=== PATIENT | female | born 1995 | race Caucasian/White ===

== ENCOUNTER 2021-02-11 14:03 | Emergency (ER) | payer OTHER, SELFPAY ==
[2021-02-11] MEDS ORDERED: Bupivacaine 0.25% HCL 30 ML VIAL ONE (15:03)
[2021-02-11] MEDS ORDERED: Triple Antibiotic Oint 1 GM Packet ONE (15:15)
== END 2021-02-11 15:35 | disposition home or self-care (01) ==
LOC: CSHERS 14:03
DX: S61.111A Laceration without foreign body of right thumb with damage to nail, initial encounter (principal); E05.90 Thyrotoxicosis, unspecified without thyrotoxic crisis or storm; W26.0XXA Contact with knife, initial encounter
CPT/HCPCS: 99283; S0020

== ENCOUNTER 2022-04-07 21:38 | Emergency (ER) | payer OTHER ==
[2022-04-07] MEDS ORDERED: Ondansetron PF 4 MG/2 ML Vial ONE (22:14)
[2022-04-07] MEDS ORDERED: Morphine 4 MG/ML VIAL ONE (22:14)
[2022-04-07 22:34] LABS: #Monocytes 0.5 10x3/uL (0.0-1.1); #Neutrophils 8.8 10x3/uL (1.5-8.4); %Basophils 0.1 % (0.0-2.0); %Eosinophils 0.4 % (0.0-6.0); %Monocytes 4.6 % (0.0-10.0); %Neutrophils 76.7 % (40.0-75.0); Hemoglobin 10.8 g/dL (12.0-15.5); Mean Corpuscular HGB CONC 31.7 g/dL (32.0-36.0); Mean Corpuscular Hemoglobin 22.5 pg (27.0-33.0); Mean Corpuscular Volume 71.2 fl (81.6-98.3); Mean Platelet Volume 9.4 fl (7.4-10.4); Platelet Count 236 10x3/uL (150-450); RBC Distribution Width 15.7 % (11.5-14.5); Red Blood Cell (RBC) Count 4.79 10x6/uL (3.90-5.03); White Blood Cell (WBC) Count 11.4 10x3/uL (3.5-10.5)
[2022-04-07 22:43] LABS: BHCG - Serum Negative (NEGATIVE); Pregs Control Background? CLEAR/WHITE (CLR/WHITE); Pregs Control Bar Appear? YES (CONTROL BAR)
[2022-04-07 22:52] LABS: ALT (SGPT) 82 U/L (8-55); AST (SGOT) 102 U/L (5-34); Albumin 4.1 g/dL (3.5-5.0); Alkaline Phosphatase 54 U/L (40-110); Anion Gap 15 mmol/L (10-20); BUN (Urea Nitrogen) 14 mg/dL (7.0-18.7); Bilirubin, Total 0.7 mg/dL (0.2-1.2); Calc. Creatinine Clearance 0 mL/min (70-130); Calcium 9.3 mg/dL (7.8-10.44); Carbon Dioxide 20 mmol/L (22-29); Chloride 104 mmol/L (98-107); Estimated GFR 124; Globulin 3.1 g/dL (2.4-3.5); Glucose 85 mg/dL (70-105); Lipase 22 U/L (8-78); Potassium 3.6 mmol/L (3.5-5.1); Protein, Total 7.2 g/dL (6.0-8.3); Sodium 135 mmol/L (136-145)
[2022-04-07] MEDS ORDERED: Piperacillin/Tazobactam 3.375 GM VIAL ONE (23:22)
[2022-04-08 01:11] LABS: SARS-CoV-2 NAA Rapid Test Not Detected (NotDetected)
== END 2022-04-08 05:42 | disposition short-term general hospital (02) ==
LOC: CSHERS 21:38
DX: K35.80 Unspecified acute appendicitis (principal); Z20.822 Contact with and (suspected) exposure to COVID-19
CPT/HCPCS: 74177; 80053; 83605; 83690; 84703; 85025; 96361; 96365; 96375; J2270; J2405; J2543; U0002

== ENCOUNTER 2022-04-22 19:41 | Emergency (ER) | payer OTHER ==
[2022-04-22 21:13] LABS: Bilirubin Neg (Negative); Blood, Urine 250 (Negative); Glucose, Urine (Dipstick) Normal (Negative); Ketone, Urine Negative (Negative); Leukocyte 25 (Negative); Nitrite Negative (Negative); Protein, Urine (Dipstick) 30 mg/dl (Neg-Trace); Specific Gravity, Urine 1.025 (1.005-1.030)
[2022-04-22 21:15] LABS: Clarity Hazy (Clear)
[2022-04-22 21:21] LABS: #Eosinphils 0.1 10x3/uL (0.0-0.5); #Monocytes 0.5 10x3/uL (0.0-1.1); #Neutrophils 5.4 10x3/uL (1.5-8.4); %Basophils 0.5 % (0.0-2.0); %Eosinophils 0.6 % (0.0-6.0); %Lymphocytes 30.5 % (18.0-47.0); %Monocytes 5.8 % (0.0-10.0); %Neutrophils 62.3 % (40.0-75.0); Hemoglobin 10.7 g/dL (12.0-15.5); Mean Corpuscular HGB CONC 31.7 g/dL (32.0-36.0); Mean Corpuscular Hemoglobin 22.5 pg (27.0-33.0); Mean Platelet Volume 9.6 fl (7.4-10.4); Platelet Count 284 10x3/uL (150-450); RBC Distribution Width 15.6 % (11.5-14.5); Red Blood Cell (RBC) Count 4.76 10x6/uL (3.90-5.03); White Blood Cell (WBC) Count 8.6 10x3/uL (3.5-10.5)
[2022-04-22 21:24] LABS: Bacteria/HPF Rare-Few HPF (None Seen); RBC/HPF 21-50 HPF (0-3); Squamous Epithelial 0-3 HPF (0-3); WBC/HPF 0-3 HPF (0-3)
[2022-04-22 21:30] LABS: BHCG - Serum Negative (NEGATIVE); Pregs Control Background? CLEAR/WHITE (CLR/WHITE); Pregs Control Bar Appear? YES (CONTROL BAR)
[2022-04-22 21:36] LABS: ALT (SGPT) 14 U/L (8-55); AST (SGOT) 14 U/L (5-34); Albumin 4.1 g/dL (3.5-5.0); Alkaline Phosphatase 67 U/L (40-110); Anion Gap 12 mmol/L (10-20); BUN (Urea Nitrogen) 13 mg/dL (7.0-18.7); Bilirubin, Total 0.6 mg/dL (0.2-1.2); Calc. Creatinine Clearance 0 mL/min (70-130); Calcium 9.2 mg/dL (7.8-10.44); Carbon Dioxide 25 mmol/L (22-29); Chloride 106 mmol/L (98-107); Estimated GFR 118; Globulin 3.2 g/dL (2.4-3.5); Glucose 85 mg/dL (70-105); Potassium 3.6 mmol/L (3.5-5.1); Protein, Total 7.3 g/dL (6.0-8.3); Sodium 139 mmol/L (136-145)
== END 2022-04-22 22:19 | disposition home or self-care (01) ==
LOC: CSHERS 19:41
DX: N93.9 Abnormal uterine and vaginal bleeding, unspecified (principal)
CPT/HCPCS: 80053; 81003; 81015; 84703; 85025; 99284

== ENCOUNTER 2022-05-11 12:21 | Emergency (ER) | payer OTHER | END 2022-05-11 14:04 | disposition home or self-care (01) | LOC: CSHERS 12:21 | DX: R05.9 Cough, unspecified (principal) | CPT/HCPCS: 99283 ==

== ENCOUNTER 2022-05-13 11:06 | Emergency (ER) | payer OTHER | END 2022-05-13 12:50 | disposition home or self-care (01) | LOC: CSHERS 11:06 | DX: H92.02 Otalgia, left ear (principal) | CPT/HCPCS: 99283 ==

== ENCOUNTER 2022-07-02 20:44 | Emergency (ER) | payer OTHER ==
[2022-07-02] MEDS ORDERED: Ibuprofen 200 MG TAB ONE (22:19)
[2022-07-02] MEDS ORDERED: Acetaminophen 500 MG TAB ONE (22:19)
== END 2022-07-02 22:39 | disposition home or self-care (01) ==
LOC: CSHERS 20:44
DX: B34.9 Viral infection, unspecified (principal); R11.2 Nausea with vomiting, unspecified; H92.03 Otalgia, bilateral; R09.81 Nasal congestion
CPT/HCPCS: 99283

== ENCOUNTER 2022-09-08 15:21 | Emergency (ER) | payer OTHER ==
[2022-09-08] MEDS ORDERED: Ondansetron ODT 4 MG TAB ONE (16:47)
[2022-09-08] MEDS ORDERED: Dicyclomine 20 MG TAB ONE (16:48)
[2022-09-13 21:53] LABS: Campy jejuni + coli by PCR Negative (Negative); STEC Shiga Toxin 1+2 Negative (Negative); Salmonella spp. by PCR Negative (Negative); Shigella spp + EIEC by PCR Negative (Negative)
== END 2022-09-08 17:28 | disposition home or self-care (01) ==
LOC: CSHERS 15:21
DX: K52.9 Noninfective gastroenteritis and colitis, unspecified (principal)
CPT/HCPCS: 87070; 87205; 87505; 99284; Q0162